=== PATIENT | male | born 1940 | race African-American/Black ===

== ENCOUNTER 2016-10-25 18:28 | Inpatient (IN) | payer MEDICARE ==
[~2016-10-25] VITALS: Ht 185.4 cm; Wt 105.2 kg
[2016-10-25] MEDS ORDERED: SODIUM CHLORIDE 0.9% 1,000 ML IV ONE (19:15)
[2016-10-25 20:22] LABS: EOSINOPHILS % 0.4 % (0.0-5.0); HEMOGLOBIN. 12.6 g/dL (14.0-18.0); LYMPHOCYTES % 13.1 % (20.0-50.0); MEAN CORPUSCULAR HEMOGLOBIN 29.1 pg (28.0-32.0); MEAN CORPUSCULAR VOLUME 87.7 fL (80.0-94.0); MEAN PLATELET VOLUME 8.6 fl (7.4-10.4); MONOCYTES % 6.4 % (2.0-8.0); NEUTROPHILS % 79.1 % (40.0-76.0); PLATELET 302 x1000/uL (130-400); RED BLOOD CELL COUNT 4.33 mill/uL (4.7-6.1); RED CELL DISTRIBUTION WIDTH 15.6 % (11.6-14.6)
[2016-10-25 20:26] LABS: INR 1.1; PROTHROMBIN TIME 11.1 sec (9.4-11.6)
[2016-10-25 20:42] LABS: CARBON DIOXIDE 27 mEq/L (21-32); CHLORIDE 100 mEq/L (98-107); CREATINE KINASE 109 IU/L (39-308); ETHANOL BLOOD < 10 mg/dL
[2016-10-25 20:48] LABS: TROPONIN I 0.12 ng/mL (0.00-0.04)
[2016-10-25 20:56] LABS: AMMONIA < 10 uMol/L (<32)
[2016-10-26] VITALS (7 sets, daily range): BP systolic 131–168; BP diastolic 74–97
[2016-10-26] MEDS ORDERED: AMLO5TAB4 PO (06:24)
[2016-10-26] MEDS ORDERED: PANT40TA4 PO (06:24)
[2016-10-26] MEDS ORDERED: METH-375 PO (06:24)
[2016-10-26] MEDS ORDERED: DORZ10DR7 EACHEYE (06:24)
[2016-10-26] MEDS ORDERED: XALAO EACHEYE (06:24)
[2016-10-26] MEDS ORDERED: FLUO20CA33 PO (06:24)
[2016-10-26] MEDS ORDERED: POLY17PO PO (06:24)
[2016-10-26] MEDS ORDERED: METO50TA5 PO (06:24)
[2016-10-26] MEDS ORDERED: POTA10TA11 PO (06:24)
[2016-10-26] MEDS ORDERED: HYDR12.54 PO (06:24)
[2016-10-26] MEDS ORDERED: NITR0.4T49 SL (06:25)
[2016-10-26] MEDS: AMLODIPINE 10MG TABLET PO SCH (11:15)
[2016-10-26] MEDS ORDERED: SODIUM BICARBONATE 4.2% 5 MEQ/10 ML DISP.SYRIN IV ONE (13:09)
[2016-10-26] MEDS ORDERED: LIDOCAINE HCL 1% 20ML VIAL (Pyxis) INJ ONE (13:09)
[2016-10-26] MEDS: DORZOLAMIDE 2% OPHTH 10 ML BOTTLE EACHEYE SCH (15:44)
[2016-10-26] MEDS: SODIUM CHLORIDE 0.9% 1,000 ML IV SCH (15:58)
[2016-10-26 16:43] LABS: BASOPHILS % 0.8 % (0.0-2.0); EOSINOPHILS % 2.2 % (0.0-5.0); HEMATOCRIT. 35.3 % (42.0-52.0); HEMOGLOBIN. 12.2 g/dL (14.0-18.0); LYMPHOCYTES % 27.7 % (20.0-50.0); MEAN CORPUSCULAR VOLUME 87.1 fL (80.0-94.0); MEAN PLATELET VOLUME 8.9 fl (7.4-10.4); MONOCYTES % 9.2 % (2.0-8.0); NEUTROPHILS % 60.1 % (40.0-76.0); PLATELET 281 x1000/uL (130-400); RED BLOOD CELL COUNT 4.05 mill/uL (4.7-6.1); RED CELL DISTRIBUTION WIDTH 15.8 % (11.6-14.6)
[2016-10-26 16:59] LABS: CARBON DIOXIDE 31 mEq/L (21-32); CHLORIDE 99 mEq/L (98-107)
[2016-10-26] MEDS: LATANOPROST 0.005% OPHTH DROPS 2.5ML EACHEYE SCH (20:39)
[2016-10-26] MEDS: METOPROLOL TARTRATE 50MG TABLET PO SCH (20:39)
[2016-10-26 21:13] LABS: CLARITY URINE CLEAR (CLEAR); COLOR URINE YELLOW (YELLOW); GLUCOSE URINE NEGATIVE (NEGATIVE); KETONES URINE TRACE (NEGATIVE); LEUKOCYTE ESTERASE URINE 2+ (NEGATIVE); NITRITE URINE NEGATIVE (NEGATIVE); OCCULT BLOOD URINE NEGATIVE (NEGATIVE); PROTEIN URINE TRACE (NEGATIVE); SPECIFIC GRAVITY URINE 1.026 (1.005-1.030)
[2016-10-26 21:45] LABS: *AMPHETAMINES SCREEN URINE NEGATIVE (NEGATIVE); *BARBITURATES SCREEN URINE NEGATIVE (NEGATIVE); *BENZODIAZEPINES SCREEN URINE NEGATIVE (NEGATIVE); *COCAINE SCREEN URINE NEGATIVE (NEGATIVE); CANNABINOID URINE SCREEN NEGATIVE (NEGATIVE); METHADONE URINE SCREEN NEGATIVE (NEGATIVE); OPIATES URINE SCREEN NEGATIVE (NEGATIVE); PHENCYCLIDINE URINE SCREEN NEGATIVE (NEGATIVE)
[2016-10-27] VITALS: BP 176/112
[2016-10-27] MEDS: CLONIDINE 0.1MG TABLET PO PRN ×2 (00:01→19:12)
[2016-10-27 04:00] VITALS: BP 157/92
[2016-10-27 08:00] VITALS: BP 159/91
[2016-10-27] MEDS: DORZOLAMIDE 2% OPHTH 10 ML BOTTLE EACHEYE SCH (08:51)
[2016-10-27] MEDS: HYDROCHLOROTHIAZIDE 12.5MG CAPSULE PO SCH (08:52)
[2016-10-27] MEDS: SODIUM CHLORIDE 0.9% 1,000 ML IV SCH ×2 (08:52→20:29)
[2016-10-27] MEDS: AMLODIPINE 10MG TABLET PO SCH (08:53)
[2016-10-27] MEDS: METOPROLOL TARTRATE 50MG TABLET PO SCH ×2 (08:55→20:29)
[2016-10-27 12:00] VITALS: BP 149/76
[2016-10-27 16:00] VITALS: BP 181/90
[2016-10-27] MEDS ORDERED: LACTULOSE 20G/30ML UDC PO SCH (16:15)
[2016-10-27] MEDS: LACTULOSE 20G/30ML UDC PO PRN (18:24)
[2016-10-27 19:03] LABS: BASOPHILS % 0.9 % (0.0-2.0); EOSINOPHILS % 3.2 % (0.0-5.0); HEMATOCRIT. 34.1 % (42.0-52.0); HEMOGLOBIN. 11.4 g/dL (14.0-18.0); LYMPHOCYTES % 27.1 % (20.0-50.0); MEAN CORPUSCULAR HEMOGLOBIN 29.3 pg (28.0-32.0); MEAN CORPUSCULAR VOLUME 87.5 fL (80.0-94.0); MEAN PLATELET VOLUME 8.4 fl (7.4-10.4); MONOCYTES % 11.4 % (2.0-8.0); NEUTROPHILS % 57.4 % (40.0-76.0); PLATELET 234 x1000/uL (130-400); RED CELL DISTRIBUTION WIDTH 15.8 % (11.6-14.6)
[2016-10-27 19:16] LABS: CARBON DIOXIDE 30 mEq/L (21-32); CHLORIDE 99 mEq/L (98-107)
[2016-10-27 20:00] VITALS: BP 162/90
[2016-10-27] MEDS: LATANOPROST 0.005% OPHTH DROPS 2.5ML EACHEYE SCH (20:29)
[2016-10-28] VITALS: BP 148/82
[2016-10-28] MEDS ORDERED: POTASSIUM CHLORIDE 20MEQ TABLET SR PO NR (03:15)
[2016-10-28 04:00] VITALS: BP 153/89
[2016-10-28 07:54] VITALS: BP 155/94
[2016-10-28] MEDS: DORZOLAMIDE 2% OPHTH 10 ML BOTTLE EACHEYE SCH (08:49)
[2016-10-28] MEDS: AMLODIPINE 10MG TABLET PO SCH (08:50)
[2016-10-28] MEDS: HYDROCHLOROTHIAZIDE 12.5MG CAPSULE PO SCH (08:50)
[2016-10-28] MEDS: METOPROLOL TARTRATE 50MG TABLET PO SCH ×2 (08:51→21:00)
[2016-10-28 12:00] VITALS: BP 136/84
[2016-10-28] MEDS: SODIUM CHLORIDE 0.9% 1,000 ML IV SCH (14:29)
[2016-10-28] MEDS: LACTULOSE 20G/30ML UDC PO PRN (14:29)
[2016-10-28 15:45] VITALS: BP 156/69
[2016-10-28 20:00] VITALS: BP 155/80
[2016-10-28] MEDS: LATANOPROST 0.005% OPHTH DROPS 2.5ML EACHEYE SCH (21:02)
[2016-10-28] MEDS: CLONIDINE 0.1MG TABLET PO PRN (23:54)
[2016-10-29] VITALS: BP 167/77
[2016-10-29] MEDS: SODIUM CHLORIDE 0.9% 1,000 ML IV SCH ×2 (01:27→22:36)
[2016-10-29 04:00] VITALS: BP 144/75
[2016-10-29] MEDS ORDERED: POTASSIUM CHLORIDE 20MEQ TABLET SR PO SCH (07:45)
[2016-10-29 08:14] VITALS: BP 156/73
[2016-10-29] MEDS: AMLODIPINE 10MG TABLET PO SCH (08:38)
[2016-10-29] MEDS: HYDROCHLOROTHIAZIDE 12.5MG CAPSULE PO SCH (08:38)
[2016-10-29] MEDS: METOPROLOL TARTRATE 50MG TABLET PO SCH ×2 (08:39→22:35)
[2016-10-29] MEDS: DORZOLAMIDE 2% OPHTH 10 ML BOTTLE EACHEYE SCH (08:39)
[2016-10-29 12:09] VITALS: BP 149/75
[2016-10-29 16:00] VITALS: BP 146/69
[2016-10-29 20:00] VITALS: BP 164/84
[2016-10-29] MEDS: ENOXAPARIN 30MG/0.3ML SYR SUBCUT SCH (22:35)
[2016-10-29] MEDS: LATANOPROST 0.005% OPHTH DROPS 2.5ML EACHEYE SCH (22:36)
[2016-10-29] MEDS: CLONIDINE 0.1MG TABLET PO PRN (22:36)
[2016-10-30] VITALS (7 sets, daily range): BP systolic 124–175; BP diastolic 70–79
[2016-10-30] MEDS: ENOXAPARIN 30MG/0.3ML SYR SUBCUT SCH ×2 (09:03→22:01)
[2016-10-30] MEDS: HYDROCHLOROTHIAZIDE 12.5MG CAPSULE PO SCH (09:03)
[2016-10-30] MEDS: METOPROLOL TARTRATE 50MG TABLET PO SCH ×2 (09:04→22:02)
[2016-10-30] MEDS: DORZOLAMIDE 2% OPHTH 10 ML BOTTLE EACHEYE SCH (09:04)
[2016-10-30] MEDS: AMLODIPINE 10MG TABLET PO SCH (09:04)
[2016-10-30 09:28] LABS: VITAMIN B12 SERUM 204 pg/mL (211-911)
[2016-10-30] MEDS: SODIUM CHLORIDE 0.9% 1,000 ML IV SCH (14:14)
[2016-10-30] MEDS: LATANOPROST 0.005% OPHTH DROPS 2.5ML EACHEYE SCH (22:02)
[2016-10-31] VITALS: BP 165/88
[2016-10-31 04:00] VITALS: BP 123/72
[2016-10-31 08:00] VITALS: BP 140/69
[2016-10-31] MEDS ORDERED: CYANOCOBALAMIN 1000MCG/ML VIAL IM SCH (09:00)
[2016-10-31] MEDS: AMLODIPINE 10MG TABLET PO SCH (09:08)
[2016-10-31] MEDS: HYDROCHLOROTHIAZIDE 12.5MG CAPSULE PO SCH (09:08)
[2016-10-31] MEDS: ENOXAPARIN 30MG/0.3ML SYR SUBCUT SCH (09:08)
[2016-10-31] MEDS: DORZOLAMIDE 2% OPHTH 10 ML BOTTLE EACHEYE SCH (09:09)
[2016-10-31] MEDS: METOPROLOL TARTRATE 50MG TABLET PO SCH (09:09)
[2016-10-31 12:00] VITALS: BP 149/80
[2016-10-31 14:05] VITALS: BP 149/80
== END 2016-10-31 14:30 | DRG 70 ==
LOC: ER 18:44 → 7WST 22:26 → ENRESERV 22:47
PROVIDERS: ADMIT Family Medicine; ATTEND Family Medicine
PROC: 02HV33Z Insertion of Infusion Device into Superior Vena Cava, Percutaneous Approach (ICD-10-PCS; principal; 2016-10-26)
PROC: B548ZZA Ultrasonography of Superior Vena Cava, Guidance (ICD-10-PCS; 2016-10-26)
PROC: B5181ZA Fluoroscopy of Superior Vena Cava using Low Osmolar Contrast, Guidance (ICD-10-PCS; 2016-10-26)
DX: G93.41 Metabolic encephalopathy (principal); N17.0 Acute kidney failure with tubular necrosis; I69.354 Hemiplegia and hemiparesis following cerebral infarction affecting left non-dominant side; E87.1 Hypo-osmolality and hyponatremia; F03.90 Unspecified dementia, unspecified severity, without behavioral disturbance, psychotic disturbance, mood disturbance, and anxiety; D63.8 Anemia in other chronic diseases classified elsewhere; E87.6 Hypokalemia; F32.9 Major depressive disorder, single episode, unspecified; H40.9 Unspecified glaucoma; K21.9 Gastro-esophageal reflux disease without esophagitis; I10 Essential (primary) hypertension; E53.8 Deficiency of other specified B group vitamins; Z79.899 Other long term (current) drug therapy; E87.5 Hyperkalemia
CPT/HCPCS: 36415; 36569; 70450; 70551; 71010; 76937; 77001; 80053; 80061; 80305; 81001; 82140; 82550; 82607; 83605; 83880; 84443; 84484; 85025; 85610; 87040; 87077; 87086; 87186; 93005; 93306; 95816; 97110; 97112; 97116; 97162; 97167; 99285; C1725; G0482; J1650; J3420; J3490; J7030

== ENCOUNTER 2017-09-05 14:54 | Inpatient (IN) | payer MEDICARE ==
[~2017-09-05] VITALS: Ht 185.4 cm; Wt 99.8 kg
[~2017-09-05 14:54] MED LIST: AMLO5TAB4 PO; DORZ10DR8 EACHEYE; FLUO20CA33 PO; HYDR12.54 PO; METH-375 PO; METO-539 PO; NITR0.4T49 SL; PANT40TA4 PO; POLY17PO PO; POTA10TA11 PO; XALAO EACHEYE
[2017-09-05] MEDS ORDERED: ONDANSETRON HCL 4MG/2ML VIAL IV STA (15:34)
[2017-09-05 15:57] LABS: BASOPHILS % 0.6 % (0.0-2.0); EOSINOPHILS % 0.4 % (0.0-5.0); HEMATOCRIT. 43.9 % (42.0-52.0); HEMOGLOBIN. 14.8 g/dL (14.0-18.0); LYMPHOCYTES % 8.5 % (20.0-50.0); MEAN CORPUSCULAR HEMOGLOBIN 29.6 pg (28.0-32.0); MEAN CORPUSCULAR VOLUME 87.9 fL (80.0-94.0); MEAN PLATELET VOLUME 8.4 fl (7.4-10.4); MONOCYTES % 4.8 % (2.0-8.0); NEUTROPHILS % 85.7 % (40.0-76.0); PLATELET 290 x1000/uL (130-400); RED BLOOD CELL COUNT 4.99 mill/uL (4.7-6.1); RED CELL DISTRIBUTION WIDTH 15.9 % (11.6-14.6)
[2017-09-05 16:02] LABS: CHLORIDE 99 mEq/L (98-107)
[2017-09-05 16:04] LABS: D-DIMER 1.46 mg/L FEU (<0.50); INR 1.1; PROTHROMBIN TIME 11.2 sec (9.4-11.6)
[2017-09-05 16:07] LABS: AMMONIA 12 uMol/L (<32); ETHANOL BLOOD < 10 mg/dL
[2017-09-05 16:09] LABS: CARBAMAZEPINE < 0.5 ug/mL (4-12)
[2017-09-05 16:11] LABS: CREATINE KINASE 84 IU/L (39-308)
[2017-09-05 16:21] LABS: PHENOBARBITAL < 2.1 ug/mL (15.0-40.0); VALPROIC ACID < 3.0 ug/mL (50-100)
[2017-09-05] MEDS ORDERED: SODIUM CHLORIDE 0.9% 500 ML IV ONE (16:54)
[2017-09-06 00:15] VITALS: BP 180/90
[2017-09-06 00:24] VITALS: BP 189/84
[2017-09-06] MEDS ORDERED: DOCUSATE SODIUM 100MG CAPSULE PO PRN (00:30)
[2017-09-06] MEDS ORDERED: LORAZEPAM 2MG/ML CPJ IV PRN (00:30)
[2017-09-06] MEDS ORDERED: ONDANSETRON HCL 4MG/2ML VIAL IV PRN (00:30)
[2017-09-06] MEDS: AMLODIPINE 5MG TABLET PO SCH ×3 (01:04→20:26)
[2017-09-06] MEDS: DEXT 5%/0.45% NACL 1000ML 1,000 ML IV SCH ×2 (01:16→23:35)
[2017-09-06 04:00] VITALS: BP 145/94
[2017-09-06 08:00] VITALS: BP 140/71
[2017-09-06 08:28] LABS: CREATINE KINASE MB FRACTION 2.3 ng/mL (0.5-3.6)
[2017-09-06] MEDS: ENOXAPARIN 40MG/0.4ML SYR SUBCUT SCH (08:52)
[2017-09-06] MEDS: METOPROLOL TARTRATE 25MG TABLET PO SCH ×2 (10:45→20:26)
[2017-09-06 11:55] LABS: CHLORIDE 103 mEq/L (98-107)
[2017-09-06 12:00] VITALS: BP 153/68
[2017-09-06] MEDS: ACETAMINOPHEN 325MG TABLET PO PRN (20:25)
[2017-09-06 20:38] VITALS: BP 146/70
[2017-09-06 22:16] LABS: CREATINE KINASE MB FRACTION 1.5 ng/mL (0.5-3.6)
[2017-09-07] VITALS: BP 155/78
[2017-09-07 04:00] VITALS: BP 163/80
[2017-09-07 07:05] LABS: BASOPHILS % 1.2 % (0.0-2.0); EOSINOPHILS % 2.8 % (0.0-5.0); HEMATOCRIT. 36.3 % (42.0-52.0); HEMOGLOBIN. 12.3 g/dL (14.0-18.0); LYMPHOCYTES % 29.8 % (20.0-50.0); MEAN CORPUSCULAR HEMOGLOBIN 29.9 pg (28.0-32.0); MEAN CORPUSCULAR VOLUME 88.3 fL (80.0-94.0); MEAN PLATELET VOLUME 8.7 fl (7.4-10.4); MONOCYTES % 11.3 % (2.0-8.0); NEUTROPHILS % 54.9 % (40.0-76.0); PLATELET 207 x1000/uL (130-400); RED BLOOD CELL COUNT 4.12 mill/uL (4.7-6.1)
[2017-09-07 07:36] LABS: CHLORIDE 101 mEq/L (98-107)
[2017-09-07 08:00] VITALS: BP 151/77
[2017-09-07 08:01] LABS: LDL CHOLESTEROL 92 mg/dL (5-100); PHOSPHORUS 2.8 mg/dL (2.5-4.9)
[2017-09-07 08:04] LABS: HDL CHOLESTEROL 46 mg/dL (40-59)
[2017-09-07] MEDS: AMLODIPINE 5MG TABLET PO SCH (08:53)
[2017-09-07] MEDS: METOPROLOL TARTRATE 25MG TABLET PO SCH (08:53)
[2017-09-07] MEDS: ENOXAPARIN 40MG/0.4ML SYR SUBCUT SCH (08:53)
[2017-09-07 12:00] VITALS: BP 132/68
[2017-09-07 12:04] LABS: T4 FREE 0.77 ng/dL (0.76-1.46)
[2017-09-07 12:24] LABS: FOLIC ACID (FOLATE) SERUM 8.3 ng/mL (>5.38)
[2017-09-07] MEDS: LOSARTAN POTASSIUM 25 MG TABLET PO SCH (13:32)
[2017-09-07] MEDS: NIFEDIPINE XL 60MG TAB PO SCH (13:33)
[2017-09-07] MEDS ORDERED: IOHEXOL-350 100 ML BOTTLE ONE (14:46)
[2017-09-07 15:35] LABS: COLOR URINE YELLOW (YELLOW); KETONES URINE NEGATIVE (NEGATIVE); LEUKOCYTE ESTERASE URINE TRACE (NEGATIVE); NITRITE URINE POSITIVE (NEGATIVE); OCCULT BLOOD URINE NEGATIVE (NEGATIVE); PH URINE 7.5 (4.5-8.0); PROTEIN URINE NEGATIVE (NEGATIVE); SPECIFIC GRAVITY URINE 1.013 (1.005-1.030)
[2017-09-07 16:00] VITALS: BP 148/80
[2017-09-07] MEDS: ACETAMINOPHEN 325MG TABLET PO PRN (16:11)
[2017-09-07 16:53] LABS: CLARITY URINE SL HAZY (CLEAR)
[2017-09-07 20:00] VITALS: BP 126/67
[2017-09-08] VITALS (7 sets, daily range): BP systolic 103–145; BP diastolic 68–87
[2017-09-08] MEDS: DEXT 5%/0.45% NACL 1000ML 1,000 ML IV SCH (00:23)
[2017-09-08 07:36] LABS: BASOPHILS % 1.2 % (0.0-2.0); EOSINOPHILS % 3.3 % (0.0-5.0); HEMATOCRIT. 39.9 % (42.0-52.0); HEMOGLOBIN. 13.5 g/dL (14.0-18.0); MEAN CORPUSCULAR HEMOGLOBIN 29.9 pg (28.0-32.0); MEAN CORPUSCULAR VOLUME 88.8 fL (80.0-94.0); MEAN PLATELET VOLUME 9.5 fl (7.4-10.4); MONOCYTES % 10.4 % (2.0-8.0); NEUTROPHILS % 56.1 % (40.0-76.0); PLATELET 234 x1000/uL (130-400); RED CELL DISTRIBUTION WIDTH 15.7 % (11.6-14.6)
[2017-09-08 07:47] LABS: CHLORIDE 99 mEq/L (98-107)
[2017-09-08] MEDS ORDERED: POTASSIUM CHLORIDE 20MEQ TABLET SR PO SCH (09:00)
[2017-09-08] MEDS: NIFEDIPINE XL 60MG TAB PO SCH (09:00)
[2017-09-08] MEDS: LOSARTAN POTASSIUM 25 MG TABLET PO SCH (09:00)
[2017-09-08] MEDS: ENOXAPARIN 40MG/0.4ML SYR SUBCUT SCH (09:17)
[2017-09-09] MEDS ORDERED: NIFEDIPINE XL 30MG TAB PO SCH (09:00)
== END 2017-09-08 20:10 | DRG 67 ==
LOC: ER 15:02 → 8WST 19:17 → EDBEDREQTM 19:48 → EDBEDREQ 19:48 → ENRESERV 21:53
PROVIDERS: ADMIT Internal Medicine Nephrology; ATTEND Internal Medicine Nephrology
DX: I65.03 Occlusion and stenosis of bilateral vertebral arteries (principal); G92 Toxic encephalopathy; J98.11 Atelectasis; I69.354 Hemiplegia and hemiparesis following cerebral infarction affecting left non-dominant side; E87.6 Hypokalemia; H40.9 Unspecified glaucoma; E11.9 Type 2 diabetes mellitus without complications; R47.1 Dysarthria and anarthria; R26.9 Unspecified abnormalities of gait and mobility; I11.9 Hypertensive heart disease without heart failure; K21.9 Gastro-esophageal reflux disease without esophagitis; I44.30 Unspecified atrioventricular block; Z82.3 Family history of stroke; Z82.49 Family history of ischemic heart disease and other diseases of the circulatory system; Z86.79 Personal history of other diseases of the circulatory system; Z79.899 Other long term (current) drug therapy
CPT/HCPCS: 36415; 70450; 70496; 70551; 71045; 80048; 80053; 80061; 80156; 80165; 80184; 80185; 81003; 82140; 82550; 82553; 82607; 82746; 83036; 83735; 83880; 84100; 84439; 84443; 84481; 84484; 85025; 85379; 85610; 92523; 93005; 93306; 97116; 97162; 97166; 97530; A6261; C1893; G0482; J1650; J2405; J3490; J7040; Q9967

== ENCOUNTER 2017-09-08 20:20 | Inpatient (IN) | payer MEDICARE ==
[~2017-09-08] VITALS: Ht 185.4 cm; Wt 88.5 kg
[2017-09-08 20:20] VITALS: BP 138/80
[2017-09-08] MEDS ORDERED: ONDANSETRON HCL 4MG/2ML VIAL IV PRN (21:30)
[2017-09-08] MEDS ORDERED: ACETAMINOPHEN 325MG TABLET PO PRN (21:30)
[2017-09-08] MEDS ORDERED: LORAZEPAM 2MG/ML CPJ IV PRN (21:30)
[2017-09-08 22:20] VITALS: BP 138/80
[2017-09-08] MEDS: LACTULOSE 20G/30ML UDC PO SCH (22:56)
[2017-09-09] MEDS: LACTULOSE 20G/30ML UDC PO SCH ×3 (05:53→22:15)
[2017-09-09 07:59] VITALS: BP 155/93
[2017-09-09] MEDS: POTASSIUM CHLORIDE 20MEQ TABLET SR PO SCH (08:06)
[2017-09-09] MEDS: LOSARTAN POTASSIUM 25 MG TABLET PO SCH (08:06)
[2017-09-09] MEDS: NIFEDIPINE XL 30MG TAB PO SCH (08:06)
[2017-09-09] MEDS: ENOXAPARIN 40MG/0.4ML SYR SUBCUT SCH (08:07)
[2017-09-09 08:47] LABS: CHLORIDE 100 mEq/L (98-107)
[2017-09-09 08:52] LABS: BASOPHILS % 0.6 % (0.0-2.0); EOSINOPHILS % 2.7 % (0.0-5.0); HEMATOCRIT. 38.9 % (42.0-52.0); HEMOGLOBIN. 13.2 g/dL (14.0-18.0); LYMPHOCYTES % 28.8 % (20.0-50.0); MEAN CORPUSCULAR HEMOGLOBIN 29.6 pg (28.0-32.0); MEAN CORPUSCULAR VOLUME 87.5 fL (80.0-94.0); MEAN PLATELET VOLUME 8.6 fl (7.4-10.4); MONOCYTES % 11.8 % (2.0-8.0); NEUTROPHILS % 56.1 % (40.0-76.0); PLATELET 273 x1000/uL (130-400); RED BLOOD CELL COUNT 4.44 mill/uL (4.7-6.1); RED CELL DISTRIBUTION WIDTH 15.6 % (11.6-14.6)
[2017-09-09] MEDS ORDERED: NA PHOS,M-B/NA PHOS,DI-BA ENEMA 118ML PR PRN (18:15)
[2017-09-09 20:00] VITALS: BP 155/95
[2017-09-10] MEDS: LACTULOSE 20G/30ML UDC PO SCH ×3 (06:00→21:34)
[2017-09-10 08:00] VITALS: BP 188/106
[2017-09-10] MEDS: ENOXAPARIN 40MG/0.4ML SYR SUBCUT SCH (08:41)
[2017-09-10] MEDS: LOSARTAN POTASSIUM 25 MG TABLET PO SCH (08:42)
[2017-09-10] MEDS: POTASSIUM CHLORIDE 20MEQ TABLET SR PO SCH (08:42)
[2017-09-10] MEDS: NIFEDIPINE XL 30MG TAB PO SCH (08:42)
[2017-09-10 10:00] VITALS: BP 137/80
[2017-09-10 11:32] LABS: CLARITY URINE CLEAR (CLEAR); COLOR URINE YELLOW (YELLOW); KETONES URINE NEGATIVE (NEGATIVE); LEUKOCYTE ESTERASE URINE NEGATIVE (NEGATIVE); NITRITE URINE NEGATIVE (NEGATIVE); OCCULT BLOOD URINE TRACE (NEGATIVE); PROTEIN URINE TRACE (NEGATIVE); SPECIFIC GRAVITY URINE 1.017 (1.005-1.030); UROBILINOGEN URINE 0.2 E.U./dL (0.2-1.0)
[2017-09-10 20:00] VITALS: BP 164/90
[2017-09-10] MEDS: NIFEDIPINE XL 60MG TAB PO SCH (21:33)
[2017-09-10] MEDS: LOSARTAN POTASSIUM 50 MG TABLET PO SCH (21:34)
[2017-09-10] MEDS: CLONIDINE 0.1MG TABLET PO PRN (23:17)
[2017-09-11 00:30] VITALS: BP 125/84
[2017-09-11] MEDS: LACTULOSE 20G/30ML UDC PO SCH (06:00)
[2017-09-11 07:07] LABS: EOSINOPHILS % 2.8 % (0.0-5.0); HEMATOCRIT. 36.9 % (42.0-52.0); HEMOGLOBIN. 12.3 g/dL (14.0-18.0); LYMPHOCYTES % 24.6 % (20.0-50.0); MEAN CORPUSCULAR HEMOGLOBIN 29.1 pg (28.0-32.0); MEAN CORPUSCULAR VOLUME 87.7 fL (80.0-94.0); MEAN PLATELET VOLUME 8.5 fl (7.4-10.4); MONOCYTES % 10.5 % (2.0-8.0); NEUTROPHILS % 61.1 % (40.0-76.0); PLATELET 269 x1000/uL (130-400); RED BLOOD CELL COUNT 4.21 mill/uL (4.7-6.1); RED CELL DISTRIBUTION WIDTH 15.8 % (11.6-14.6)
[2017-09-11 07:21] LABS: CHLORIDE 105 mEq/L (98-107)
[2017-09-11 07:34] LABS: LDL CHOLESTEROL 94 mg/dL (5-100); PHOSPHORUS 2.7 mg/dL (2.5-4.9)
[2017-09-11 07:35] LABS: TOTAL IRON BINDING CAPACITY 218 ug/dL (250-450)
[2017-09-11 07:37] LABS: HDL CHOLESTEROL 40 mg/dL (40-59)
[2017-09-11 07:46] LABS: FOLIC ACID (FOLATE) SERUM 9.3 ng/mL (>5.38); PROSTRATE SPECIFIC AG TOTAL 3.11 ng/mL (0.0-4.0)
[2017-09-11 08:00] VITALS: BP 116/73
[2017-09-11] MEDS: CYANOCOBALAMIN 1000MCG/ML VIAL IM SCH (08:44)
[2017-09-11] MEDS: POTASSIUM CHLORIDE 20MEQ TABLET SR PO SCH (08:44)
[2017-09-11] MEDS: ENOXAPARIN 40MG/0.4ML SYR SUBCUT SCH (08:45)
[2017-09-11] MEDS: LOSARTAN POTASSIUM 50 MG TABLET PO SCH ×2 (08:46→21:30)
[2017-09-11] MEDS: NIFEDIPINE XL 60MG TAB PO SCH ×2 (08:46→21:30)
[2017-09-11 20:00] VITALS: BP 140/75
[2017-09-12 08:00] VITALS: BP 145/89
[2017-09-12] MEDS: POTASSIUM CHLORIDE 20MEQ TABLET SR PO SCH (08:58)
[2017-09-12] MEDS: LOSARTAN POTASSIUM 50 MG TABLET PO SCH ×2 (08:59→21:00)
[2017-09-12] MEDS: ENOXAPARIN 40MG/0.4ML SYR SUBCUT SCH (09:00)
[2017-09-12] MEDS: NIFEDIPINE XL 60MG TAB PO SCH ×3 (09:00→22:10)
[2017-09-12] MEDS: CYANOCOBALAMIN 1000MCG/ML VIAL IM SCH (09:01)
[2017-09-12] MEDS: NITROFURANTOIN 100MG M/M CAPSULE PO SCH (15:14)
[2017-09-12 20:00] VITALS: BP 151/86
[2017-09-13 07:00] VITALS: BP 139/70
[2017-09-13 07:40] LABS: BASOPHILS % 0.5 % (0.0-2.0); EOSINOPHILS % 0.1 % (0.0-5.0); HEMATOCRIT. 38.3 % (42.0-52.0); HEMOGLOBIN. 12.6 g/dL (14.0-18.0); LYMPHOCYTES % 13.9 % (20.0-50.0); MEAN CORPUSCULAR HEMOGLOBIN 29.1 pg (28.0-32.0); MEAN CORPUSCULAR VOLUME 88.8 fL (80.0-94.0); MEAN PLATELET VOLUME 8.8 fl (7.4-10.4); MONOCYTES % 9.8 % (2.0-8.0); NEUTROPHILS % 75.7 % (40.0-76.0); PLATELET 266 x1000/uL (130-400); RED BLOOD CELL COUNT 4.32 mill/uL (4.7-6.1); RED CELL DISTRIBUTION WIDTH 16.2 % (11.6-14.6)
[2017-09-13 08:45] LABS: CHLORIDE 103 mEq/L (98-107)
[2017-09-13] MEDS: POTASSIUM CHLORIDE 20MEQ TABLET SR PO SCH (09:20)
[2017-09-13] MEDS: LOSARTAN POTASSIUM 50 MG TABLET PO SCH ×2 (09:21→22:02)
[2017-09-13] MEDS: NITROFURANTOIN 100MG M/M CAPSULE PO SCH ×2 (09:21→22:02)
[2017-09-13] MEDS: CYANOCOBALAMIN 1000MCG/ML VIAL IM SCH (09:21)
[2017-09-13] MEDS: ENOXAPARIN 40MG/0.4ML SYR SUBCUT SCH (09:22)
[2017-09-13 12:50] VITALS: BP 127/76
[2017-09-13] MEDS ORDERED: SODIUM CHL 0.45% + KCL 20MEQ/L 1,000 ML IV SCH (13:30)
[2017-09-13 19:25] VITALS: BP 158/79
[2017-09-13] MEDS: NIFEDIPINE XL 60MG TAB PO SCH (22:02)
[2017-09-14] MEDS: CLONIDINE 0.1MG TABLET PO PRN (06:03)
[2017-09-14 06:52] VITALS: BP 166/95
[2017-09-14 07:29] LABS: BASOPHILS % 0.7 % (0.0-2.0); EOSINOPHILS % 1.3 % (0.0-5.0); HEMATOCRIT. 39.8 % (42.0-52.0); HEMOGLOBIN. 13.1 g/dL (14.0-18.0); LYMPHOCYTES % 22.3 % (20.0-50.0); MEAN CORPUSCULAR HEMOGLOBIN 29.3 pg (28.0-32.0); MEAN CORPUSCULAR VOLUME 89.1 fL (80.0-94.0); MEAN PLATELET VOLUME 8.7 fl (7.4-10.4); MONOCYTES % 10.3 % (2.0-8.0); NEUTROPHILS % 65.4 % (40.0-76.0); PLATELET 277 x1000/uL (130-400); RED BLOOD CELL COUNT 4.47 mill/uL (4.7-6.1); RED CELL DISTRIBUTION WIDTH 15.9 % (11.6-14.6)
[2017-09-14 07:39] LABS: CHLORIDE 101 mEq/L (98-107)
[2017-09-14 08:00] VITALS: BP 113/70
[2017-09-14] MEDS: POTASSIUM CHLORIDE 20MEQ TABLET SR PO SCH (09:22)
[2017-09-14] MEDS: CYANOCOBALAMIN 1000MCG/ML VIAL IM SCH (09:22)
[2017-09-14] MEDS: LOSARTAN POTASSIUM 50 MG TABLET PO SCH ×2 (09:22→22:29)
[2017-09-14] MEDS: NITROFURANTOIN 100MG M/M CAPSULE PO SCH ×2 (09:23→22:29)
[2017-09-14] MEDS: NIFEDIPINE XL 60MG TAB PO SCH ×2 (09:23→22:29)
[2017-09-14] MEDS: ENOXAPARIN 40MG/0.4ML SYR SUBCUT SCH (09:23)
[2017-09-14 20:00] VITALS: BP 139/81
[2017-09-15 08:00] VITALS: BP 130/76
[2017-09-15] MEDS: CYANOCOBALAMIN 1000MCG/ML VIAL IM SCH (09:58)
[2017-09-15] MEDS: NITROFURANTOIN 100MG M/M CAPSULE PO SCH ×2 (09:59→21:21)
[2017-09-15] MEDS: POTASSIUM CHLORIDE 20MEQ TABLET SR PO SCH (09:59)
[2017-09-15] MEDS: LOSARTAN POTASSIUM 50 MG TABLET PO SCH ×2 (09:59→21:21)
[2017-09-15] MEDS: NIFEDIPINE XL 60MG TAB PO SCH ×2 (10:00→21:21)
[2017-09-15] MEDS: ENOXAPARIN 40MG/0.4ML SYR SUBCUT SCH (10:00)
[2017-09-15] MEDS: DOCUSATE SODIUM 100MG CAPSULE PO PRN ×2 (12:07→21:21)
[2017-09-15 20:00] VITALS: BP 133/85
[2017-09-15] MEDS: LACTULOSE 20G/30ML UDC PO PRN (21:21)
[2017-09-16 07:53] LABS: BASOPHILS % 0.9 % (0.0-2.0); EOSINOPHILS % 1.9 % (0.0-5.0); HEMATOCRIT. 40.1 % (42.0-52.0); HEMOGLOBIN. 13.3 g/dL (14.0-18.0); LYMPHOCYTES % 28.8 % (20.0-50.0); MEAN CORPUSCULAR HEMOGLOBIN 29.6 pg (28.0-32.0); MEAN CORPUSCULAR VOLUME 88.9 fL (80.0-94.0); MEAN PLATELET VOLUME 8.8 fl (7.4-10.4); MONOCYTES % 11.8 % (2.0-8.0); NEUTROPHILS % 56.6 % (40.0-76.0); PLATELET 294 x1000/uL (130-400); RED CELL DISTRIBUTION WIDTH 15.7 % (11.6-14.6)
[2017-09-16 08:00] VITALS: BP 154/94
[2017-09-16 08:01] LABS: CHLORIDE 103 mEq/L (98-107)
[2017-09-16] MEDS: NIFEDIPINE XL 60MG TAB PO SCH ×2 (09:00→22:11)
[2017-09-16] MEDS: LOSARTAN POTASSIUM 50 MG TABLET PO SCH ×2 (09:00→22:11)
[2017-09-16] MEDS: POTASSIUM CHLORIDE 20MEQ TABLET SR PO SCH (09:43)
[2017-09-16] MEDS: ENOXAPARIN 40MG/0.4ML SYR SUBCUT SCH (09:43)
[2017-09-16] MEDS: CYANOCOBALAMIN 1000MCG/ML VIAL IM SCH (09:44)
[2017-09-16] MEDS: NITROFURANTOIN 100MG M/M CAPSULE PO SCH ×2 (09:44→22:11)
[2017-09-16] MEDS ORDERED: LACTULOSE 20G/30ML UDC PO SCH (13:15)
[2017-09-16] MEDS: LACTULOSE 20G/30ML UDC PO SCH ×2 (14:10→18:00)
[2017-09-16 20:06] VITALS: BP 154/81
[2017-09-16] MEDS: LACTULOSE 20G/30ML UDC PO PRN (22:11)
[2017-09-16] MEDS: DOCUSATE SODIUM 100MG CAPSULE PO PRN (22:11)
[2017-09-17] MEDS: LACTULOSE 20G/30ML UDC PO PRN (04:21)
[2017-09-17 08:00] VITALS: BP 140/91
[2017-09-17] MEDS ORDERED: BARIUM SULFATE 176 GM SUSP.RECON ONE (08:20)
[2017-09-17] MEDS: CYANOCOBALAMIN 1000MCG/ML VIAL IM SCH (09:49)
[2017-09-17] MEDS: POTASSIUM CHLORIDE 20MEQ TABLET SR PO SCH (09:50)
[2017-09-17] MEDS: NIFEDIPINE XL 60MG TAB PO SCH ×2 (09:50→20:43)
[2017-09-17] MEDS: NITROFURANTOIN 100MG M/M CAPSULE PO SCH ×2 (09:50→20:42)
[2017-09-17] MEDS: LOSARTAN POTASSIUM 50 MG TABLET PO SCH ×2 (09:50→20:43)
[2017-09-17] MEDS: ENOXAPARIN 40MG/0.4ML SYR SUBCUT SCH (09:50)
[2017-09-17] MEDS: LACTULOSE 20G/30ML UDC PO SCH ×2 (15:52→20:42)
[2017-09-17] MEDS: PANTOPRAZOLE 40MG DR TABLET PO SCH (15:53)
[2017-09-17 20:00] VITALS: BP 148/87
[2017-09-18] MEDS: LACTULOSE 20G/30ML UDC PO SCH ×2 (00:13→03:56)
[2017-09-18] MEDS: PANTOPRAZOLE 40MG DR TABLET PO SCH (06:13)
[2017-09-18 07:00] LABS: PROTHROMBIN TIME 10.7 sec (9.4-11.6)
[2017-09-18 07:15] LABS: BASOPHILS % 0.7 % (0.0-2.0); EOSINOPHILS % 2.7 % (0.0-5.0); HEMOGLOBIN. 13.1 g/dL (14.0-18.0); LYMPHOCYTES % 27.3 % (20.0-50.0); MEAN CORPUSCULAR HEMOGLOBIN 29.8 pg (28.0-32.0); MEAN CORPUSCULAR VOLUME 88.7 fL (80.0-94.0); MONOCYTES % 10.8 % (2.0-8.0); NEUTROPHILS % 58.5 % (40.0-76.0); PLATELET 311 x1000/uL (130-400); RED BLOOD CELL COUNT 4.39 mill/uL (4.7-6.1); RED CELL DISTRIBUTION WIDTH 15.8 % (11.6-14.6)
[2017-09-18 07:40] LABS: CHLORIDE 103 mEq/L (98-107)
[2017-09-18 08:00] VITALS: BP 150/90
[2017-09-18 08:04] LABS: PHOSPHORUS 3.3 mg/dL (2.5-4.9)
[2017-09-18] MEDS: POTASSIUM CHLORIDE 20MEQ TABLET SR PO SCH (09:43)
[2017-09-18] MEDS: NIFEDIPINE XL 60MG TAB PO SCH ×2 (09:44→21:09)
[2017-09-18] MEDS: LOSARTAN POTASSIUM 50 MG TABLET PO SCH ×2 (09:44→21:08)
[2017-09-18] MEDS: NITROFURANTOIN 100MG M/M CAPSULE PO SCH ×2 (09:44→21:10)
[2017-09-18] MEDS: ENOXAPARIN 40MG/0.4ML SYR SUBCUT SCH (09:45)
[2017-09-18 20:00] VITALS: BP 134/81
[2017-09-19 08:00] VITALS: BP 105/64
[2017-09-19] MEDS: NIFEDIPINE XL 60MG TAB PO SCH ×2 (09:00→20:34)
[2017-09-19] MEDS: POTASSIUM CHLORIDE 20MEQ TABLET SR PO SCH (09:00)
[2017-09-19] MEDS: LOSARTAN POTASSIUM 50 MG TABLET PO SCH (10:14)
[2017-09-19] MEDS: ENOXAPARIN 40MG/0.4ML SYR SUBCUT SCH (10:23)
[2017-09-19] MEDS: NITROFURANTOIN 100MG M/M CAPSULE PO SCH (10:29)
[2017-09-19] MEDS: ERGOCALCIFEROL 50000UNITS CAPSULE PO SCH (15:19)
[2017-09-19 20:00] VITALS: BP 157/82
[2017-09-20] MEDS: PANTOPRAZOLE 40MG DR TABLET PO SCH (06:08)
[2017-09-20 08:00] VITALS: BP 124/80
[2017-09-20] MEDS: NIFEDIPINE XL 60MG TAB PO SCH ×2 (09:25→20:51)
[2017-09-20] MEDS: POTASSIUM CHLORIDE 20MEQ TABLET SR PO SCH (09:26)
[2017-09-20] MEDS: ENOXAPARIN 40MG/0.4ML SYR SUBCUT SCH (09:26)
[2017-09-20 20:00] VITALS: BP 141/72
[2017-09-21] MEDS: PANTOPRAZOLE 40MG DR TABLET PO SCH (06:28)
[2017-09-21 08:00] VITALS: BP 142/83
[2017-09-21 08:34] LABS: EOSINOPHILS % 2.1 % (0.0-5.0); HEMATOCRIT. 40.6 % (42.0-52.0); HEMOGLOBIN. 13.4 g/dL (14.0-18.0); LYMPHOCYTES % 29.4 % (20.0-50.0); MEAN CORPUSCULAR HEMOGLOBIN 29.7 pg (28.0-32.0); MEAN CORPUSCULAR VOLUME 89.6 fL (80.0-94.0); MONOCYTES % 8.6 % (2.0-8.0); NEUTROPHILS % 58.9 % (40.0-76.0); RED BLOOD CELL COUNT 4.53 mill/uL (4.7-6.1); RED CELL DISTRIBUTION WIDTH 16.4 % (11.6-14.6)
[2017-09-21 08:44] LABS: CHLORIDE 102 mEq/L (98-107)
[2017-09-21] MEDS: POTASSIUM CHLORIDE 20MEQ TABLET SR PO SCH (09:01)
[2017-09-21] MEDS: NIFEDIPINE XL 60MG TAB PO SCH ×2 (09:01→21:45)
[2017-09-21] MEDS: ENOXAPARIN 40MG/0.4ML SYR SUBCUT SCH (09:01)
[2017-09-21 09:32] LABS: PLATELET 258 x1000/uL (130-400)
[2017-09-21 20:00] VITALS: BP 155/88
[2017-09-21 21:45] VITALS: BP 150/80
[2017-09-21 23:00] VITALS: BP 138/78
[2017-09-22] MEDS: PANTOPRAZOLE 40MG DR TABLET PO SCH (06:08)
[2017-09-22 08:00] VITALS: BP 162/87
[2017-09-22] MEDS: NIFEDIPINE XL 60MG TAB PO SCH ×2 (09:54→21:48)
[2017-09-22] MEDS: POTASSIUM CHLORIDE 20MEQ TABLET SR PO SCH (09:54)
[2017-09-22] MEDS: ENOXAPARIN 40MG/0.4ML SYR SUBCUT SCH (09:55)
[2017-09-22] MEDS: LOSARTAN POTASSIUM 25 MG TABLET PO SCH (14:58)
[2017-09-22 20:00] VITALS: BP 143/89
[2017-09-23] MEDS: PANTOPRAZOLE 40MG DR TABLET PO SCH (06:07)
[2017-09-23 07:55] VITALS: BP 176/97
[2017-09-23] MEDS: NIFEDIPINE XL 60MG TAB PO SCH ×2 (09:37→21:49)
[2017-09-23] MEDS: LOSARTAN POTASSIUM 25 MG TABLET PO SCH (09:38)
[2017-09-23] MEDS: POTASSIUM CHLORIDE 20MEQ TABLET SR PO SCH (09:40)
[2017-09-23] MEDS: ENOXAPARIN 40MG/0.4ML SYR SUBCUT SCH (09:43)
[2017-09-23] MEDS: LOSARTAN POTASSIUM 50 MG TABLET PO SCH (18:34)
[2017-09-23] MEDS: LACTULOSE 20G/30ML UDC PO SCH ×3 (18:34→23:47)
[2017-09-23 20:00] VITALS: BP 132/86
[2017-09-24] MEDS: PANTOPRAZOLE 40MG DR TABLET PO SCH (06:28)
[2017-09-24 07:39] LABS: BASOPHILS % 0.7 % (0.0-2.0); EOSINOPHILS % 2.1 % (0.0-5.0); HEMATOCRIT. 40.1 % (42.0-52.0); HEMOGLOBIN. 13.4 g/dL (14.0-18.0); LYMPHOCYTES % 33.6 % (20.0-50.0); MEAN CORPUSCULAR HEMOGLOBIN 29.6 pg (28.0-32.0); MEAN CORPUSCULAR VOLUME 88.8 fL (80.0-94.0); MEAN PLATELET VOLUME 8.7 fl (7.4-10.4); MONOCYTES % 8.7 % (2.0-8.0); NEUTROPHILS % 54.9 % (40.0-76.0); PLATELET 384 x1000/uL (130-400); RED BLOOD CELL COUNT 4.52 mill/uL (4.7-6.1); RED CELL DISTRIBUTION WIDTH 16.3 % (11.6-14.6)
[2017-09-24 07:45] LABS: CHLORIDE 103 mEq/L (98-107)
[2017-09-24 08:00] VITALS: BP 120/76
[2017-09-24] MEDS: LOSARTAN POTASSIUM 50 MG TABLET PO SCH ×2 (08:38→17:07)
[2017-09-24] MEDS: POTASSIUM CHLORIDE 20MEQ TABLET SR PO SCH (08:38)
[2017-09-24] MEDS: ENOXAPARIN 40MG/0.4ML SYR SUBCUT SCH (08:38)
[2017-09-24] MEDS: NIFEDIPINE XL 60MG TAB PO SCH ×2 (08:38→22:15)
[2017-09-24] MEDS ORDERED: CYANOCOBALAMIN 1000MCG/ML VIAL IM SCH (09:00)
[2017-09-24 20:00] VITALS: BP 143/83
[2017-09-25] MEDS: PANTOPRAZOLE 40MG DR TABLET PO SCH (07:07)
[2017-09-25 08:00] VITALS: BP 150/94
[2017-09-25] MEDS: POTASSIUM CHLORIDE 20MEQ TABLET SR PO SCH (08:53)
[2017-09-25] MEDS: LOSARTAN POTASSIUM 50 MG TABLET PO SCH ×2 (08:53→17:29)
[2017-09-25] MEDS: NIFEDIPINE XL 60MG TAB PO SCH ×2 (08:53→21:34)
[2017-09-25] MEDS: ENOXAPARIN 40MG/0.4ML SYR SUBCUT SCH (08:54)
[2017-09-25 20:00] VITALS: BP 150/86
[2017-09-26] MEDS: PANTOPRAZOLE 40MG DR TABLET PO SCH (06:10)
[2017-09-26 08:20] VITALS: BP 136/82
[2017-09-26] MEDS ORDERED: ENOXAPARIN 40MG/0.4ML SYR SUBCUT SCH (09:00)
[2017-09-26] MEDS: LOSARTAN POTASSIUM 50 MG TABLET PO SCH (09:48)
[2017-09-26] MEDS: POTASSIUM CHLORIDE 20MEQ TABLET SR PO SCH (09:48)
[2017-09-26] MEDS: ERGOCALCIFEROL 50000UNITS CAPSULE PO SCH (09:48)
[2017-09-26] MEDS: NIFEDIPINE XL 60MG TAB PO SCH (09:49)
== END 2017-09-26 14:55 | DRG 92 ==
LOC: UNDOADMIN 20:59
PROVIDERS: ADMIT Physical Medicine & Rehabilitation Spinal Cord Injury Medicine; ATTEND Internal Medicine Nephrology
DX: G92 Toxic encephalopathy (principal); R47.01 Aphasia; J98.11 Atelectasis; N39.0 Urinary tract infection, site not specified; I69.254 Hemiplegia and hemiparesis following other nontraumatic intracranial hemorrhage affecting left non-dominant side; R13.10 Dysphagia, unspecified; R25.2 Cramp and spasm; I10 Essential (primary) hypertension; E11.9 Type 2 diabetes mellitus without complications; R26.9 Unspecified abnormalities of gait and mobility; M79.609 Pain in unspecified limb; R47.81 Slurred speech; R47.1 Dysarthria and anarthria; R53.81 Other malaise; H40.9 Unspecified glaucoma; R32 Unspecified urinary incontinence; L89.90 Pressure ulcer of unspecified site, unspecified stage; I50.9 Heart failure, unspecified; I11.0 Hypertensive heart disease with heart failure; R74.8 Abnormal levels of other serum enzymes; E55.9 Vitamin D deficiency, unspecified; D50.9 Iron deficiency anemia, unspecified; B95.2 Enterococcus as the cause of diseases classified elsewhere; I25.10 Atherosclerotic heart disease of native coronary artery without angina pectoris; I95.9 Hypotension, unspecified; E87.6 Hypokalemia; F32.9 Major depressive disorder, single episode, unspecified; F41.9 Anxiety disorder, unspecified; Z86.79 Personal history of other diseases of the circulatory system; Z82.49 Family history of ischemic heart disease and other diseases of the circulatory system; Z79.899 Other long term (current) drug therapy
CPT/HCPCS: 36415; 70490; 70551; 71045; 74230; 80048; 80053; 80061; 81003; 82306; 82607; 82728; 82746; 83036; 83540; 83550; 83735; 84100; 84134; 84153; 84443; 84630; 85025; 85610; 87077; 87086; 87186; 92508; 92523; 92610; 92611; 93970; 97110; 97112; 97116; 97150; 97163; 97167; 97530; 97535; A4565; A6261; J1650; J2060; J2405; J3420; J3480

== ENCOUNTER 2018-06-21 12:54 | Inpatient (IN) | payer MEDICARE ==
[~2018-06-21] VITALS: Ht 172.7 cm; Wt 93.6 kg
[~2018-06-21 12:54] MED LIST changes: -POLY17PO PO; +POLY17PO28 PO
[2018-06-21 13:54] LABS: BASOPHILS % 0.9 % (0.0-2.0); EOSINOPHILS % 0.9 % (0.0-5.0); HEMATOCRIT. 40.4 % (42.0-52.0); HEMOGLOBIN. 13.5 g/dL (14.0-18.0); LYMPHOCYTES % 15.1 % (20.0-50.0); MEAN CORPUSCULAR VOLUME 89.8 fL (80.0-94.0); MEAN PLATELET VOLUME 8.1 fl (7.4-10.4); MONOCYTES % 9.9 % (2.0-8.0); NEUTROPHILS % 73.2 % (40.0-76.0); PLATELET 282 x1000/uL (130-400); RED CELL DISTRIBUTION WIDTH 15.5 % (11.6-14.6)
[2018-06-21 13:57] LABS: CHLORIDE 99 mEq/L (98-107)
[2018-06-21 14:01] LABS: ETHANOL BLOOD < 10 mg/dL
[2018-06-21] MEDS ORDERED: IOHEXOL-350 100 ML BOTTLE ONE (15:42)
[2018-06-21 17:20] LABS: CLARITY URINE CLEAR (CLEAR); COLOR URINE YELLOW (YELLOW); KETONES URINE NEGATIVE (NEGATIVE); LEUKOCYTE ESTERASE URINE 1+ (NEGATIVE); NITRITE URINE NEGATIVE (NEGATIVE); OCCULT BLOOD URINE TRACE (NEGATIVE); PROTEIN URINE NEGATIVE (NEGATIVE); SPECIFIC GRAVITY URINE 1.024 (1.005-1.030); UROBILINOGEN URINE 0.2 E.U./dL (0.2-1.0)
[2018-06-21 17:30] LABS: *AMPHETAMINES SCREEN URINE NEGATIVE (NEGATIVE); *BARBITURATES SCREEN URINE NEGATIVE (NEGATIVE); CANNABINOID URINE SCREEN NEGATIVE (NEGATIVE); METHADONE URINE SCREEN NEGATIVE (NEGATIVE); OPIATES URINE SCREEN NEGATIVE (NEGATIVE); PHENCYCLIDINE URINE SCREEN NEGATIVE (NEGATIVE)
[2018-06-21 17:31] LABS: *BENZODIAZEPINES SCREEN URINE NEGATIVE (NEGATIVE); *COCAINE SCREEN URINE NEGATIVE (NEGATIVE)
[2018-06-21 20:00] VITALS: BP_SYST 140; BP_SYST 90; BP_DIAS 55; BP_DIAS 95
[2018-06-21] MEDS ORDERED: ACETAMINOPHEN 325MG TABLET PO PRN (20:45)
[2018-06-21] MEDS: AMLODIPINE 10MG TABLET PO SCH ×2 (21:00→21:19)
[2018-06-21] MEDS: ATORVASTATIN CALCIUM 40MG TABLET PO SCH (21:18)
[2018-06-22] VITALS: BP 98/62
[2018-06-22 04:00] VITALS: BP 127/73
[2018-06-22 06:43] LABS: BASOPHILS % 1.3 % (0.0-2.0); EOSINOPHILS % 2.9 % (0.0-5.0); HEMATOCRIT. 39.3 % (42.0-52.0); HEMOGLOBIN. 13.3 g/dL (14.0-18.0); LYMPHOCYTES % 32.5 % (20.0-50.0); MEAN CORPUSCULAR HEMOGLOBIN 30.3 pg (28.0-32.0); MEAN CORPUSCULAR VOLUME 89.6 fL (80.0-94.0); MEAN PLATELET VOLUME 8.8 fl (7.4-10.4); MONOCYTES % 12.6 % (2.0-8.0); NEUTROPHILS % 50.7 % (40.0-76.0); PLATELET 269 x1000/uL (130-400); RED BLOOD CELL COUNT 4.39 mill/uL (4.7-6.1); RED CELL DISTRIBUTION WIDTH 15.6 % (11.6-14.6)
[2018-06-22 08:00] VITALS: BP 139/82
[2018-06-22] MEDS ORDERED: PNEUMOCOCCAL 23-VAL P-SAC VAC 0.5 ML IM ONE (08:00)
[2018-06-22] MEDS ORDERED: ONDANSETRON HCL 4MG/2ML INJ IV PRN (08:45)
[2018-06-22] MEDS: AMLODIPINE 10MG TABLET PO SCH (09:05)
[2018-06-22] MEDS: CLOPIDOGREL 75MG TABLET PO SCH (09:07)
[2018-06-22 12:00] VITALS: BP 142/73
[2018-06-22] MEDS: ENOXAPARIN 30MG/0.3ML SYR SUBCUT SCH ×2 (12:49→20:44)
[2018-06-22] MEDS: ATORVASTATIN CALCIUM 40MG TABLET PO SCH (12:49)
[2018-06-22] MEDS: CEFTRIAXONE 1 G PREMIX 50 ML IV SCH (13:23)
[2018-06-22 15:25] LABS: CHLORIDE 101 mEq/L (98-107)
[2018-06-22 16:00] VITALS: BP 118/76
[2018-06-22 20:00] VITALS: BP 135/82
[2018-06-23] VITALS (8 sets, daily range): BP systolic 126–162; BP diastolic 69–93
[2018-06-23] MEDS: AMLODIPINE 10MG TABLET PO SCH (08:15)
[2018-06-23] MEDS: CLOPIDOGREL 75MG TABLET PO SCH (08:15)
[2018-06-23] MEDS: ENOXAPARIN 30MG/0.3ML SYR SUBCUT SCH ×2 (08:16→21:10)
[2018-06-23] MEDS: ATORVASTATIN CALCIUM 40MG TABLET PO SCH (12:47)
[2018-06-23] MEDS: CEFTRIAXONE 1 G PREMIX 50 ML IV SCH (13:23)
[2018-06-24] VITALS: BP 142/63
[2018-06-24 04:00] VITALS: BP 143/88
[2018-06-24 08:00] VITALS: BP 147/75
[2018-06-24] MEDS: CLOPIDOGREL 75MG TABLET PO SCH (08:33)
[2018-06-24] MEDS: AMLODIPINE 10MG TABLET PO SCH (08:33)
[2018-06-24] MEDS: ENOXAPARIN 30MG/0.3ML SYR SUBCUT SCH (08:34)
[2018-06-24 12:00] VITALS: BP 147/76
[2018-06-24] MEDS: CEFTRIAXONE 1 G PREMIX 50 ML IV SCH (14:17)
[2018-06-24] MEDS: ATORVASTATIN CALCIUM 40MG TABLET PO SCH (14:17)
== END 2018-06-24 17:23 | DRG 69 ==
LOC: ER 13:02 → 7WST 14:36 → ENRESERV 15:52
PROVIDERS: ADMIT Internal Medicine; ATTEND Internal Medicine
DX: G45.9 Transient cerebral ischemic attack, unspecified (principal); N17.0 Acute kidney failure with tubular necrosis; E87.1 Hypo-osmolality and hyponatremia; N39.0 Urinary tract infection, site not specified; J98.11 Atelectasis; I69.954 Hemiplegia and hemiparesis following unspecified cerebrovascular disease affecting left non-dominant side; I10 Essential (primary) hypertension; H40.9 Unspecified glaucoma; D64.9 Anemia, unspecified; E66.9 Obesity, unspecified; E78.5 Hyperlipidemia, unspecified; K76.9 Liver disease, unspecified; Z68.31 Body mass index [BMI] 31.0-31.9, adult
CPT/HCPCS: 36415; 70496; 70498; 70551; 71045; 80048; 80061; 80305; 80320; 82962; 83036; 84484; 90732; 92610; 93005; 93306; 97110; 97116; 97162; 99285; J0696; J1650; J7050; Q9967; G0480